=== PATIENT | female | born 1980 | race Asian ===

== ENCOUNTER 2017-07-04 19:07 | Emergency (ER) | payer BC ==
[~2017-07-04] VITALS: Ht 165.1 cm; Wt 56.9 kg
[2017-07-04 19:34] VITALS: Ht 165.1 cm; Wt 56.9 kg
[2017-07-04 21:08] LABS: BASOPHIL % 0.6 % (0-2); PLATELET COUNT 301 x10^3mcL (130-400); RED CELL DISTRIBUTION WIDTH 12.6 % (11.5-14.5)
[2017-07-04 21:20] LABS: CALCIUM 8.4 mg/dL (8.5-10.1); CARBON DIOXIDE 28.2 mmol/L (21-32); CHLORIDE SERUM 102 mmol/L (98-107); CREATININE SERUM 0.7 mg/dL (0.6-1.0); GFR1 > 60 mL/min; GLUCOSE SERUM 90 mg/dL (74-106); POTASSIUM SERUM 3.9 mmol/L (3.5-5.1); SODIUM SERUM 137 mmol/L (136-145)
[2017-07-05 01:21] VITALS: BP 129/73
== END 2017-07-04 22:15 | disposition home or self-care (01) ==
LOC: ED 19:07
PROVIDERS: Emergency Medicine Emergency Medical Services
DX: F43.9 Reaction to severe stress, unspecified (principal); Z88.8 Allergy status to other drugs, medicaments and biological substances
CPT/HCPCS: 36415

== ENCOUNTER 2019-07-09 19:17 | Emergency (ER) | payer BC ==
[~2019-07-09] VITALS: Ht 165.1 cm; Wt 54.4 kg
[2019-07-09 19:26] VITALS: Ht 165.1 cm; Wt 54.4 kg
[2019-07-09 20:27] LABS: BASOPHIL % 0.4 % (0-2); PLATELET COUNT 262 x10^3mcL (130-400); RED CELL DISTRIBUTION WIDTH 12.4 % (11.5-14.5)
[2019-07-09 20:38] LABS: CALCIUM 8.7 mg/dL (8.5-10.1); CARBON DIOXIDE 28.3 mmol/L (21-32); CHLORIDE SERUM 101 mmol/L (98-107); CREATININE SERUM 0.7 mg/dL (0.6-1.0); GFR1 > 60 mL/min; GLUCOSE SERUM 73 mg/dL (74-106); SODIUM SERUM 137 mmol/L (136-145)
[2019-07-09 20:42] LABS: ALBUMIN 4.2 g/dL (3.4-5.0); ALKALINE PHOSPHATASE 62 U/L (46-116); ALT/SGPT 19 U/L (14-59); AST/SGOT 15 U/L (15-37); BILIRUBIN TOTAL 0.46 mg/dL (0.20-1.00); TOTAL PROTEIN, SERUM 7.3 g/dL (6.4-8.2)
[2019-07-09 21:14] VITALS: BP 101/63
== END 2019-07-09 21:14 | disposition home or self-care (01) ==
LOC: ED 19:17
PROVIDERS: Emergency Medicine
DX: R42 Dizziness and giddiness (principal); R09.81 Nasal congestion; M54.2 Cervicalgia; Z88.6 Allergy status to analgesic agent
CPT/HCPCS: 36415